=== PATIENT | female | born 1945 | race Two or more races ===

== ENCOUNTER 2018-12-12 13:58 | Emergency (ER) | payer MEDICARE, MEDICAID ==
[~2018-12-12] VITALS: Ht 152.4 cm; Wt 63.5 kg
[2018-12-12 14:45] LABS: Basophils # (auto) 0 uL; Basophils % (auto) 0.3 % (0.0-2.0); Eosinophils # (auto) 0.1 uL; Eosinophils % (auto) 1.4 % (0.0-7.0); Hematocrit 43.4 % (36.0-46.0); Hemoglobin 14.5 g/dL (12.2-16.2); Lymphocytes % (auto) 12.9 % (10.0-50.0); Mean Corpuscular Hgb Conc. 33.3 g/dL (32.0-36.0); Mean Corpuscular Volume 87.1 fL (80.0-100.0); Monocytes # (auto) 0.5 uL; Monocytes % (auto) 5.8 % (0.0-12.0); Neutrophils # (auto) 6.4 uL; Neutrophils % (auto) 79.6 % (37.0-80.0); Platelet Count (auto) 201 10^3/uL (140-450); Red Blood Cells 4.98 10^6/uL (4.0-5.20); Red Cell Distribution Width 13.2 % (11.8-14.3)
[2018-12-12 14:59] LABS: Potassium 3.7 mmol/L (3.5-5.1)
[2018-12-12 15:02] LABS: Albumin 3.7 g/dL (3.4-5.0); Calcium 8.8 mg/dL (8.5-10.1)
[2018-12-12 15:08] LABS: BUN/Creatinine Ratio 15.6; Bilirubin, Total 0.4 mg/dL (0.2-1.0); Total Protein 8.1 g/dL (6.4-8.2)
[2018-12-12] MEDS ORDERED: MECLIZINE HCL 25 MG TAB PO ONE (15:15)
[2018-12-12 16:14] VITALS: BP 140/67
== END 2018-12-12 16:28 | disposition home or self-care (01) ==
LOC: EDBD 13:58 → ER 13:58
DX: R42 Dizziness and giddiness (principal); R11.2 Nausea with vomiting, unspecified; I10 Essential (primary) hypertension; E11.9 Type 2 diabetes mellitus without complications
CPT/HCPCS: 36415; 70450; 80053; 82962; 85025; 93005; 99284; J8597

== ENCOUNTER 2020-12-03 15:09 | Inpatient (IN) | payer MEDICARE, MEDICAID ==
[~2020-12-03] VITALS: Ht 157.5 cm; Wt 66.2 kg
[2020-12-03] MEDS ORDERED: SODIUM CHLORIDE 0.9% 1,000 ML IV ONE (15:30)
[2020-12-03] MEDS ORDERED: ASPirin 81 mg TAB PO ONE (15:30)
[2020-12-03] MEDS ORDERED: HEPARIN SODIUM (PORCINE) 5000 UNITS/ML 1ML VIAL IV ONE (15:30)
[2020-12-03] MEDS ORDERED: SODIUM CHL 0.9% 50 ML ONE (15:40)
[2020-12-03] MEDS ORDERED: MIDAZOLAM HCL 1MG/1ML-2 ML VIAL ONE (15:40)
[2020-12-03] MEDS ORDERED: LIDOCAINE 2%HCL (LOCAL ANESTH.) INJ 20ML MDV ONE (15:40)
[2020-12-03] MEDS ORDERED: ANGIOMAX 250 MG VIAL IV ONE (15:40)
[2020-12-03] MEDS ORDERED: fentaNYL CITRATE 100 MCG/2 ML VL ONE (15:40)
[2020-12-03 15:45] LABS: Basophils # (auto) 0 10 ^3/uL (0-0.2); Basophils % (auto) 0.6 % (0.0-2.0); Eosinophils # (auto) 0.2 10 ^3/uL (0-0.8); Eosinophils % (auto) 2.9 % (0.0-7.0); Hematocrit 39.3 % (36.0-46.0); Hemoglobin 13.4 g/dL (12.2-16.2); Lymphocytes # (auto) 2.5 10 ^3/uL (0.4-5.4); Mean Corpuscular Hemoglobin 29.4 pg (28.0-32.0); Mean Corpuscular Hgb Conc. 34.1 g/dL (32.0-36.0); Mean Corpuscular Volume 86.1 fL (80.0-100.0); Monocytes # (auto) 0.7 10 ^3/uL (0-1.3); Monocytes % (auto) 8.3 % (0.0-12.0); Neutrophils # (auto) 4.5 10 ^3/uL (1.6-8.6); Neutrophils % (auto) 57.2 % (37.0-80.0); Nucleated Red Blood Cells % 0.1 %; Platelet Count (auto) 198 10^3/uL (140-450); Red Blood Cells 4.57 10^6/uL (4.0-5.20); Red Cell Distribution Width 13.6 % (11.8-14.3)
[2020-12-03 16:02] LABS: Albumin 3.3 g/dL (3.4-5.0); Calcium 9.1 mg/dL (8.5-10.1); Magnesium 1.8 mg/dL (1.6-2.6); Potassium 4.1 mmol/L (3.5-5.1)
[2020-12-03 16:07] LABS: INR 1.06 (0.9-1.15); Partial Thromboplastin Time 23.4 sec (23.0-31.2)
[2020-12-03 16:13] LABS: BUN/Creatinine Ratio 21.9; Bilirubin, Total 0.3 mg/dL (0.2-1.0); Total Protein 7.4 g/dL (6.4-8.2)
[2020-12-03] MEDS ORDERED: ATROPINE SULF 1 MG/10ml SYR ONE ×2 (16:35→16:51)
[2020-12-03] MEDS ORDERED: niCARdipine 25 MG/10 ML VIAL IV ONE (16:47)
[2020-12-03] MEDS ORDERED: IODIXANOL 320MG/ML 100ML BTL IV ONE (16:49)
[2020-12-03] MEDS ORDERED: CLOPIDOGREL 300 MG TAB ONE (16:58)
[2020-12-03] MEDS ORDERED: ASPirin 325 MG TAB ONE (16:59)
[2020-12-03] MEDS ORDERED: DEXTROSE (50%) 50ML SYRG IV PRN (18:00)
[2020-12-03] MEDS ORDERED: SOD CHL 0.45% 1,000 ML IV SCH ×4 (18:00→23:30)
[2020-12-03] MEDS ORDERED: HYDROcodone-ACET 5/325MG TAB PO PRN (18:00)
[2020-12-03] MEDS ORDERED: MORPHINE SULF INJ 2 MG/ML SYRINGE 1ML IV PRN (18:00)
[2020-12-03] MEDS ORDERED: HYDROmorphone HCL 2 MG/ML VL IV PRN (18:00)
[2020-12-03] MEDS: ACCU-CHEK COMFORT CURVE STRIP VI SCH (19:08)
[2020-12-03] MEDS: InsuLIN REG 1unit/0.01ml Soln (100units/ml) SC SCH (19:13)
[2020-12-03 20:00] VITALS: BP 92/55
[2020-12-03 22:00] VITALS: BP 91/50
[2020-12-03] MEDS ORDERED: METOPROLOL TARTRATE 25 MG TAB PO SCH (22:00)
[2020-12-03 23:27] LABS: Urine Bacteria NONE SEEN /hpf (None Seen); Urine Blood Negative /uL (Negative); Urine Mucus FEW (None Seen); Urine WBC 1 /hpf (0 - 5)
[2020-12-03 23:32] LABS: Urine Specific Gravity > 1.050 (1.001-1.035)
[2020-12-04] VITALS (9 sets, daily range): BP systolic 87–106; BP diastolic 48–59
[2020-12-04] MEDS: InsuLIN REG 1unit/0.01ml Soln (100units/ml) SC SCH ×5 (01:22→23:31)
[2020-12-04] MEDS: ONDANSETRON HCL 4 MG/2 ML VIAL IV PRN ×2 (01:30→09:53)
[2020-12-04] MEDS: ATORVASTATIN 20 MG TAB PO SCH ×2 (01:38→21:54)
[2020-12-04] MEDS: ACCU-CHEK COMFORT CURVE STRIP VI SCH ×5 (06:00→23:31)
[2020-12-04] MEDS ORDERED: SOD CHL 0.45% 1,000 ML IV SCH ×2 (08:00→09:26)
[2020-12-04 08:20] LABS: Cholesterol 183 mg/dL (< 200)
[2020-12-04 08:23] LABS: HDL Cholesterol 43 mg/dL (40-59); LDL Cholesterol 132 mg/dL (< 100); Triglycerides 102 mg/dL (< 150)
[2020-12-04] MEDS ORDERED: METF-370 PO (09:30)
[2020-12-04] MEDS ORDERED: SITA100T7 PO (09:30)
[2020-12-04] MEDS ORDERED: DAPA1TAB4 PO (09:30)
[2020-12-04] MEDS ORDERED: ROSU40TA PO (09:30)
[2020-12-04] MEDS: ASPirin 81 mg TAB PO SCH (09:54)
[2020-12-04] MEDS: CLOPIDOGREL BISULFATE 75 MG TAB PO SCH (09:54)
[2020-12-04] MEDS ORDERED: PANTOPRAZOLE 40 MG/10 ML VIAL INJ IV SCH (10:00)
[2020-12-04] MEDS ORDERED: HYDROmorphone HCL 2 MG/ML VL IV PRN (10:45)
[2020-12-04] MEDS: SODIUM CHLORIDE 0.9% 1,000 ML IV SCH ×2 (11:11→21:55)
[2020-12-04 17:45] LABS: Basophils # (auto) 0 10 ^3/uL (0-0.2); Basophils % (auto) 0.1 % (0.0-2.0); Eosinophils # (auto) 0 10 ^3/uL (0-0.8); Eosinophils % (auto) 0.2 % (0.0-7.0); Hemoglobin 11.7 g/dL (12.2-16.2); Lymphocytes # (auto) 2.1 10 ^3/uL (0.4-5.4); Lymphocytes % (auto) 23.9 % (10.0-50.0); Mean Corpuscular Hemoglobin 28.8 pg (28.0-32.0); Mean Corpuscular Hgb Conc. 33.4 g/dL (32.0-36.0); Mean Corpuscular Volume 86.2 fL (80.0-100.0); Monocytes % (auto) 11.8 % (0.0-12.0); Neutrophils # (auto) 5.5 10 ^3/uL (1.6-8.6); Nucleated Red Blood Cells % 0.2 %; Platelet Count (auto) 153 10^3/uL (140-450); Red Blood Cells 4.06 10^6/uL (4.0-5.20); White Blood Cell 8.7 10^3/uL (4.4-10.8)
[2020-12-04] MEDS: SUCRALFATE 1 GM/10 ML ORAL SUSP PO SCH ×2 (18:20→21:54)
[2020-12-04] MEDS: PANTOPRAZOLE 40 MG/10 ML VIAL INJ IV SCH (21:54)
[2020-12-05 05:00] VITALS: BP 96/53
[2020-12-05] MEDS: InsuLIN REG 1unit/0.01ml Soln (100units/ml) SC SCH ×4 (05:17→23:06)
[2020-12-05] MEDS: SODIUM CHLORIDE 0.9% 1,000 ML IV SCH ×2 (05:17→12:44)
[2020-12-05] MEDS: ACCU-CHEK COMFORT CURVE STRIP VI SCH ×4 (05:17→22:55)
[2020-12-05] MEDS: SUCRALFATE 1 GM/10 ML ORAL SUSP PO SCH ×4 (06:05→20:47)
[2020-12-05 07:12] LABS: Basophils # (auto) 0 10 ^3/uL (0-0.2); Basophils % (auto) 0.4 % (0.0-2.0); Eosinophils # (auto) 0 10 ^3/uL (0-0.8); Eosinophils % (auto) 0.6 % (0.0-7.0); Hematocrit 35.1 % (36.0-46.0); Hemoglobin 11.7 g/dL (12.2-16.2); Lymphocytes # (auto) 1.8 10 ^3/uL (0.4-5.4); Lymphocytes % (auto) 22.5 % (10.0-50.0); Mean Corpuscular Hemoglobin 29.2 pg (28.0-32.0); Mean Corpuscular Hgb Conc. 33.4 g/dL (32.0-36.0); Mean Corpuscular Volume 87.5 fL (80.0-100.0); Monocytes # (auto) 0.9 10 ^3/uL (0-1.3); Monocytes % (auto) 11.4 % (0.0-12.0); Neutrophils # (auto) 5.2 10 ^3/uL (1.6-8.6); Neutrophils % (auto) 65.1 % (37.0-80.0); Nucleated Red Blood Cells % 0.1 %; Platelet Count (auto) 130 10^3/uL (140-450); Red Blood Cells 4.01 10^6/uL (4.0-5.20); Red Cell Distribution Width 13.8 % (11.8-14.3); White Blood Cell 7.9 10^3/uL (4.4-10.8)
[2020-12-05 07:28] LABS: Potassium 4.2 mmol/L (3.5-5.1)
[2020-12-05 07:34] LABS: BUN/Creatinine Ratio 15.8; Calcium 8.2 mg/dL (8.5-10.1)
[2020-12-05 08:00] VITALS: BP 116/79
[2020-12-05] MEDS: CLOPIDOGREL BISULFATE 75 MG TAB PO SCH (08:16)
[2020-12-05] MEDS: PANTOPRAZOLE 40 MG/10 ML VIAL INJ IV SCH ×2 (08:16→20:47)
[2020-12-05] MEDS: ASPirin 81 mg TAB PO SCH (08:16)
[2020-12-05 13:00] VITALS: BP 99/60
[2020-12-05] MEDS ORDERED: MILK OF MAGNESIA 30ML SUSP PO PRN (14:44)
[2020-12-05] MEDS ORDERED: POLYETHYLENE GLYCOL 17 GM PWDR PO ONE (14:45)
[2020-12-05] MEDS ORDERED: DOCUSATE SOD 100 MG CAP PO ONE (14:45)
[2020-12-05 17:00] VITALS: BP 110/52
[2020-12-05 20:00] VITALS: BP 115/52
[2020-12-05] MEDS: ATORVASTATIN 20 MG TAB PO SCH (20:48)
[2020-12-05 22:00] VITALS: BP 101/51
[2020-12-06] MEDS: ACCU-CHEK COMFORT CURVE STRIP VI SCH ×2 (05:09→11:43)
[2020-12-06] MEDS: InsuLIN REG 1unit/0.01ml Soln (100units/ml) SC SCH ×2 (05:10→11:44)
[2020-12-06] MEDS: SUCRALFATE 1 GM/10 ML ORAL SUSP PO SCH ×4 (05:10→17:00)
[2020-12-06 05:26] VITALS: BP 136/70
[2020-12-06 05:31] LABS: Basophils # (auto) 0 10 ^3/uL (0-0.2); Basophils % (auto) 0.4 % (0.0-2.0); Eosinophils # (auto) 0 10 ^3/uL (0-0.8); Eosinophils % (auto) 0.4 % (0.0-7.0); Hematocrit 36.5 % (36.0-46.0); Hemoglobin 12.3 g/dL (12.2-16.2); Lymphocytes # (auto) 0.8 10 ^3/uL (0.4-5.4); Lymphocytes % (auto) 8.7 % (10.0-50.0); Mean Corpuscular Hemoglobin 29.3 pg (28.0-32.0); Mean Corpuscular Hgb Conc. 33.8 g/dL (32.0-36.0); Mean Corpuscular Volume 86.7 fL (80.0-100.0); Monocytes # (auto) 0.8 10 ^3/uL (0-1.3); Monocytes % (auto) 8.9 % (0.0-12.0); Neutrophils # (auto) 7.6 10 ^3/uL (1.6-8.6); Neutrophils % (auto) 81.6 % (37.0-80.0); Nucleated Red Blood Cells % 0.1 %; Platelet Count (auto) 138 10^3/uL (140-450); Red Blood Cells 4.21 10^6/uL (4.0-5.20); Red Cell Distribution Width 13.9 % (11.8-14.3); White Blood Cell 9.3 10^3/uL (4.4-10.8)
[2020-12-06 05:53] LABS: Calcium 8.5 mg/dL (8.5-10.1); Potassium 4.2 mmol/L (3.5-5.1)
[2020-12-06 05:55] LABS: BUN/Creatinine Ratio 13.4
[2020-12-06] MEDS: SODIUM CHLORIDE 0.9% 1,000 ML IV SCH (07:45)
[2020-12-06 09:00] VITALS: BP 110/60
[2020-12-06 09:43] VITALS: BP 110/60
[2020-12-06] MEDS: ASPirin 81 mg TAB PO SCH (10:00)
[2020-12-06] MEDS: PANTOPRAZOLE 40 MG/10 ML VIAL INJ IV SCH (10:51)
[2020-12-06] MEDS: CLOPIDOGREL BISULFATE 75 MG TAB PO SCH (10:51)
[2020-12-06 13:00] VITALS: BP 120/66
== END 2020-12-06 17:30 | disposition home or self-care (01) | DRG 246 ==
LOC: ER 15:09 → EDBD 15:09 → TELE-CENTR 18:35
PROVIDERS: ADMIT Internal Medicine; ATTEND Internal Medicine
PROC: 027034Z Dilation of Coronary Artery, One Artery with Drug-eluting Intraluminal Device, Percutaneous Approach (ICD-10-PCS; principal; 2020-12-03)
PROC: B41F1ZZ Fluoroscopy of Right Lower Extremity Arteries using Low Osmolar Contrast (ICD-10-PCS; 2020-12-03)
PROC: 4A023N7 Measurement of Cardiac Sampling and Pressure, Left Heart, Percutaneous Approach (ICD-10-PCS; 2020-12-03)
PROC: B2151ZZ Fluoroscopy of Left Heart using Low Osmolar Contrast (ICD-10-PCS; 2020-12-03)
PROC: B2111ZZ Fluoroscopy of Multiple Coronary Arteries using Low Osmolar Contrast (ICD-10-PCS; 2020-12-03)
DX: I21.19 ST elevation (STEMI) myocardial infarction involving other coronary artery of inferior wall (principal); S06.5X0A Traumatic subdural hemorrhage without loss of consciousness, initial encounter; K92.0 Hematemesis; I21.11 ST elevation (STEMI) myocardial infarction involving right coronary artery; I95.1 Orthostatic hypotension; Z20.822 Contact with and (suspected) exposure to COVID-19; I25.10 Atherosclerotic heart disease of native coronary artery without angina pectoris; E11.9 Type 2 diabetes mellitus without complications; S00.03XA Contusion of scalp, initial encounter; D64.9 Anemia, unspecified; K29.70 Gastritis, unspecified, without bleeding; W18.39XA Other fall on same level, initial encounter; I10 Essential (primary) hypertension; K59.00 Constipation, unspecified; Z79.02 Long term (current) use of antithrombotics/antiplatelets; Z79.82 Long term (current) use of aspirin; Z79.899 Other long term (current) drug therapy; Z83.3 Family history of diabetes mellitus; Z90.710 Acquired absence of both cervix and uterus; Z95.5 Presence of coronary angioplasty implant and graft; Y93.89 Activity, other specified; Y92.89 Other specified places as the place of occurrence of the external cause; Y99.8 Other external cause status
CPT/HCPCS: 36415; 70450; 71045; 72125; 74018; 80048; 80053; 80061; 81001; 82271; 82962; 83036; 83735; 84443; 84484; 85025; 85610; 85730; 86850; 86900; 86901; 87426; 99152; 99153; 99291; C1874; C1887; C9113; G0378; J1815; J2250; J2405; Q9967

== ENCOUNTER → 2021-01-20 | Outpatient (CLI) | payer MEDICARE, MEDICAID ==
[~2021-01-20] MED LIST: DAPA1TAB4 PO; METF-370 PO; ROSU40TA PO; SITA100T7 PO
== END | disposition home or self-care (01) ==
LOC: XYW 10:48
PROVIDERS: ATTEND Internal Medicine
DX: I07.1 Rheumatic tricuspid insufficiency (principal); I25.810 Atherosclerosis of coronary artery bypass graft(s) without angina pectoris
CPT/HCPCS: 93306